=== PATIENT | male | born 1985 | race African-American/Black ===

== ENCOUNTER 2025-02-25 10:02 | Emergency (ER) | payer SELFPAY ==
[~2025-02-25] VITALS: Ht 172.7 cm; Wt 72.0 kg
[2025-02-25 10:11] VITALS: BP 153/100; PULSE 101; RESP 18; TEMP 36.9; O2SAT 98
== END 2025-02-25 10:38 | disposition left against medical advice (07) ==
LOC: ER 10:02
DX: R41.82 Altered mental status, unspecified (principal); Z53.21 Procedure and treatment not carried out due to patient leaving prior to being seen by health care provider